=== PATIENT | female | born 1995 | race Caucasian/White ===

== ENCOUNTER 2019-07-12 14:57 | Emergency (ER) | payer SELFPAY ==
[~2019-07-12] VITALS: Ht 162.6 cm; Wt 65.8 kg
--- NOTE | 2019-07-12 15:25 | ED General ---
General Chief Complaint: Cough/Cold/Flu Symptoms Stated Complaint: COUGH,FEVER, SORE THROAT Source of Information: Patient Exam Limitations: No Limitations History of Present Illness Date Seen by Provider: Jul 12, 2019 Time Seen by Provider: 15:24 Initial Comments To ER with reports of subjective fever, cough, sore throat since yesterday. Timing/Duration: 1-2 Days Severity: Moderate Associated Systoms: Cough Allergies and Home Medications Allergies Coded Allergies: No Known Drug Allergies (Unverified , 07/12/19) Patient Home Medication List Home Medication List Reviewed: Yes Review of Systems Review of Systems Constitutional: see HPI, chills EENTM: see HPI, throat pain Respiratory: see HPI, cough Cardiovascular: no symptoms reported Genitourinary: no symptoms reported Musculoskeletal: no symptoms reported Skin: no symptoms reported Psychiatric/Neurological: No Symptoms Reported Hematologic/Lymphatic: No Symptoms Reported Past Oshrodm-Vhcycn-Ydzjtt Hx Patient Social History Recent Foreign Travel: No Contact w/Someone Who Travel: No Physical Exam Vital Signs Vital Signs - First Documented Capillary Refill : Height, Weight, BMI Height: '" Weight: lbs. oz. kg; BMI Method: General Appearance: No Apparent Distress, WD/WN Eyes: Bilateral Eye Normal Inspection, Bilateral Eye PERRL, Bilateral Eye EOMI HEENT: PERRL/EOMI, TMs Normal, Normal ENT Inspection Neck: Full Range of Motion, Normal Inspection Respiratory: Normal Breath Sounds, No Accessory Muscle Use, No Respiratory Distress Cardiovascular: Regular Rate, Rhythm, Normal Peripheral Pulses Gastrointestinal: Normal Bowel Sounds, Non Tender, Soft Extremity: Normal Capillary Refill, Normal Inspection Neurologic/Psychiatric: Alert, Oriented x3 Skin: Normal Color, Warm/Dry Progress/Results/Core Measures Suspected Sepsis SIRS Temperature: Pulse: Respiratory Rate: Blood Pressure / Mean: Results/Orders My Orders Orders - JEANNINE LAST APRN Chest Pa/Lat (2 View) (07/12/19 15:23) Vital Signs/I&O 07/12/19 07/12/19 15:11 15:11 Temp 35.8 Pulse 79 Resp 17 B/P (MAP) 118/74 (89) Pulse Ox 98 O2 Delivery Room Air Room Air Capillary Refill : Departure Impression Primary Impression: Bronchitis Disposition: 01 HOME, SELF-CARE Condition: Stable Departure-Patient Inst. Decision time for Depature: 15:31 Referrals: NO,LOCAL PHYSICIAN (PCP/Family) Primary Care Physician Patient Instructions: Acute Bronchitis, Adult (DC) Add. Discharge Instructions: 1. Return to ER for any concerns 2. Follow-up with your doctor next week 3. All discharge instructions reviewed with patient and/or family. Voiced understanding. Scripts Dextromethorphan Hb/Doxylamine (Robitussin Nighttime Cough Dm) 237 Ml Liquid 5 ML PO Q4H PRN for COUGH, #14 EA Prov: JEANNINE LAST APRN 07/12/19 Azithromycin (Azithromycin) 250 Mg Tablet 250 MG PO UD, #6 TAB TAKE 2 TABLETS ON DAY ONE THEN TAKE 1 TABLET DAILY FOR FOUR MORE DAYS Prov: JEANNINE LAST APRN 07/12/19 JEANNINE LAST APRN Jul 12, 2019 15:25 POS
[2019-07-12] MEDS ORDERED: [UNRECOGNIZED DRUG - CODE] PO (15:32)
[2019-07-12] MEDS ORDERED: AZIT250T12 PO (15:32)
[2019-07-12 15:45] VITALS: BP 118/74
--- NOTE | 2019-07-12 15:48 | Diagnostic Imaging Report ---
CHEST PA/LAT (2 VIEW) Indication: Cough Comparison: None available. Findings: No pulmonary mass or consolidation. No pleural effusion or pneumothorax. Normal heart size and mediastinal contours. Impression: No acute cardiopulmonary process. Dictated by: Dictated on workstation # [id number]
== END 2019-07-12 15:45 | disposition home or self-care (01) ==
LOC: ER 15:00
DX: J40 Bronchitis, not specified as acute or chronic (principal)
CPT/HCPCS: 71046

== ENCOUNTER 2020-03-01 17:27 | Emergency (ER) | payer MEDICAID, OTHER ==
[~2020-03-01] VITALS: Ht 162.5 cm; Wt 72.8 kg
[~2020-03-01 17:27] MED LIST: AZIT250T12 PO; [UNRECOGNIZED DRUG - CODE] PO
[2020-03-01 17:40] VITALS: BP 132/86
--- NOTE | 2020-03-01 17:42 | ED Abdominal Pain ---
General Chief Complaint: Female Reproductive Stated Complaint: SWELLING IN HANDS AND ANKLES,ABD PAIN Source of Information: Patient, RN/MD, RN Notes Reviewed Exam Limitations: No Limitations History of Present Illness Date Seen by Provider: Mar 01, 2020 Time Seen by Provider: 17:30 Initial Comments This patient is a 24-year-old female that is a at 28-30 weeks presents to the emerge department complaining of the swelling. Patient states she still working full-time as noticed that she's given cefepime ankle swelling throughout the day. Also describes [address] contractions from time to time. Patient should come to the emergency department to get checked out. Patient states she tries to get into her [employer] but can't be seen until tomorrow. Patient is blood pressure on arrival is 130/82. Does not appear to be acutely swollen. Denies any headache. Patient states that she still having issues with smoking and smokes daily but has cut down. We'll do medical evaluation treatment is needed Severity/Quality: Mild Associated Symptoms: Denies Symptoms, Fatigue Allergies and Home Medications Allergies Coded Allergies: No Known Drug Allergies (Unverified , 07/12/19) Home Medications Azithromycin 250 Mg Tablet, 250 MG PO UD TAKE 2 TABLETS ON DAY ONE THEN TAKE 1 TABLET DAILY FOR FOUR MORE DAYS Prescribed by: JEANNINE LAST on 07/12/19 1532 Dextromethorphan Hb/Doxylamine 237 Ml Liquid, 5 ML PO Q4H PRN for COUGH Prescribed by: JEANNINE LAST on 07/12/19 1532 Patient Home Medication List Home Medication List Reviewed: Yes Review of Systems Review of Systems Constitutional: No no symptoms reported; see HPI; No chills, No diaphoresis, No dizziness, No fever, No malaise, No weakness, No weight gain, No weight loss, No other EENTM: No No Symptoms Reported, No See HPI, No Blurred Vision, No Double Vision, No Eye Pain, No Eye Tearing, No Ear Drainage, No Ear Pain, No Mouth Pain, No Mouth Swelling, No Nose Congestion, No Nose Pain, No Throat Pain, No T hroat Swelling, No Other Respiratory: Denies No Symptoms Reported, Denies See HPI, Denies Cough, Denies Orthopnea, Denies Shortness of Air, Denies SOA With Exertion, Denies SOA at Rest, Denies Stridor, Denies Wheezing, Denies Other Cardiovascular: Denies No Symptoms Reported, Denies See HPI, Denies Chest Pain, Denies Edema, Denies Irregular Heart Rate, Denies Lightheadedness, Denies Palpitations, Denies Syncope, Denies Other Gastrointestinal: Denies No Symptoms Reported, Denies See HPI, Denies Abdomen Distended, Denies Abdominal Pain, Denies Blood Streaked Stools, Denies Constipated, Denies Diarrhea, Denies Difficulty Swallowing, Denies Nausea, Denies Poor Appetite, Denies Poor Fluid Intake, Denies Rectal Bleeding, Denies Vomiting, Denies Other Genitourinary: Denies No Symptoms Reported, Denies See HPI, Denies Burning, Denies Discharge, Denies Drainage, Denies Frequency, Denies Flank Pain, Denies Hematuria, Denies Incontinence, Denies Pain, Denies Urgency, Denies Other Musculoskeletal: No no symptoms reported, No see HPI, No back pain, No gout, No joint pain, No joint swelling, No muscle pain, No muscle stiffness, No muscle cramps, No muscle twitching, No muscle weakness, No neck pain, No other Skin: No no symptoms reported, No see HPI, No change in color, No change in hair/nails, No dryness, No hx of skin cancer, No lesions, No lumps, No pruritus, No rash, No other Psychiatric/Neurological: Denies No Symptoms Reported, Denies See HPI, Denies Anxiety, Denies Depressed, Denies Emotional Problems, Denies Headache, Denies Numbness, Denies Paresthesia, Denies Pre-Existing Deficit, Denies Seizure, Denies Tingling, Denies Tremors, Denies Weakness, Denies Other Endocrine: Denies No Symptoms Reported, Denies See HPI, Denies Excessive Sweating, Denies Flushing, Denies Intolerance to Cold, Denies Intolerance to Heat, Denies Increased Hunger, Denies Increased Thrist, Denies Increased Urine, Denies Unexplained Weight Gain, Denies Unexplaned Weight Loss, Denies Other All Other Systems Reviewed Negative Unless Noted: Yes Past Vtmyojw-Varlgm-Oqgjtb Hx Patient Social History Type Used: Cigarettes 2nd Hand Smoke Exposure: Yes Recent Foreign Travel: No Contact w/Someone Who Travel: No Recent Hopitalizations: No Seasonal Allergies Seasonal Allergies: No Past Medical History Surgeries: Yes Orthopedic Respiratory: No Cardiac: No Neurological: No Genitourinary: No Gastrointestinal: No Musculoskeletal: No Endocrine: No HEENT: No Cancer: No Psychosocial: No Integumentary: No Blood Disorders: No Physical Exam Vital Signs Vital Signs - First Documented 03/01/20 17:40 Temp 36.3 Pulse 108 Resp 16 B/P (MAP) 132/86 (101) Pulse Ox 99 O2 Delivery Room Air Capillary Refill : Height/Weight/BMI Height: '" Weight: lbs. oz. 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, no motor/sensory deficits, alert, normal mood/affect, oriented x 3 Skin: normal color, warm/dry Progress/Results/Core Measures Results/Orders Lab Results Laboratory Tests Test 03/01/20 17:45 Range/Units Urine Color YELLOW Urine Clarity SL CLOUDY Urine pH 6.0 5-9 Urine Specific [place] >1.030 1.016-1.022 Urine Protein TRACE H NEGATIVE Urine Glucose (UA) NEGATIVE NEGATIVE Urine Ketones NEGATIVE NEGATIVE Urine Nitrite NEGATIVE NEGATIVE Urine Bilirubin NEGATIVE NEGATIVE Urine Urobilinogen 1.0 < = 1.0 MG/DL Urine Leukocyte Esterase TRACE H NEGATIVE Urine RBC (Auto) NEGATIVE NEGATIVE Urine RBC NONE /HPF Urine WBC 0-2 /HPF Urine Squamous Epithelial Cells 10-25 H /HPF Urine Crystals PRESENT H /LPF Urine Calcium Oxalate Crystals LARGE H /LPF Urine Bacteria FEW H /HPF Urine Casts NONE /LPF Urine Mucus MODERATE H /LPF Urine Culture Indicated NO My Orders Orders - YOMI BUI MD Urinalysis (03/01/20 17:39) Drug Screen Stat (Urine) (03/01/20 17:56) Vital Signs/I&O 03/01/20 17:40 Temp 36.3 Pulse 108 Resp 16 B/P (MAP) 132/86 (101) Pulse Ox 99 O2 Delivery Room Air Progress Progress Note : Time: 17:57 Progress Note Negative evaluation in the emergency department. Urinalysis done just UTI. Trace protein. Patient will follow up with [employer] as instructed for continue ayan toring her protein. Patient be started on antibiotics for UTI. Take medications as instructed. Try to avoid smoking. Will try to lay his sleep on her left side. Try to keep her feet elevated when possible and avoid prolonged standing. Departure Impression Primary Impression: Urinary tract infection Additional Impression: Bilateral swelling of feet Disposition: HOME, SELF-CARE Condition: Stable Departure-Patient Inst. Decision time for Depature: 17:59 Referrals: LUIS SIDDIQUI DO (PCP/Family) Primary Care Physician Patient Instructions: Swelling, Urinary Tract Infection, Adult (DC) Add. Discharge Instructions: Take medications as instructed. Try to avoid smoking. Will try to lay his sleep on her left side. Try to keep her feet elevated when possible and avoid prolonged standing. All discharge instructions reviewed with patient and/or family. Voiced understanding. Scripts Cephalexin (Cephalexin) 500 Mg Tablet 500 MG PO BID for 5 Days, #10 TAB 0 Refills Prov: YOMI BUI MD 03/01/20 YOMI BUI MD Mar 01, 2020 17:42
[2020-03-01 17:54] LABS: BACTERIA,URINE FEW /HPF; BILIRUBIN,URINE NEGATIVE (NEGATIVE); CLARITY,URINE SL CLOUDY; COLOR,URINE YELLOW; GLUCOSE, URINE (UA) NEGATIVE (NEGATIVE); KETONES,URINE NEGATIVE (NEGATIVE); LEUKOCYTE ESTERASE ,URINE TRACE (NEGATIVE); NITRITE,URINE NEGATIVE (NEGATIVE); PROTEIN,URINE TRACE (NEGATIVE); WBC,URINE 0-2 /HPF
[2020-03-01 17:55] LABS: CALCIUM OXALATE CRYSTALS,UR LARGE /LPF
[2020-03-01] MEDS ORDERED: CEPH500T PO (18:00)
[2020-03-01 18:14] LABS: AMPHETAMINE SCREEN, URINE NEGATIVE (NEGATIVE); BARBITURATE SCREEN URINE NEGATIVE (NEGATIVE); BENZODIAZEPINES SCREEN URINE NEGATIVE (NEGATIVE); CANNABINOID SCREEN, URINE POSITIVE (NEGATIVE); COCAINE SCREEN URINE NEGATIVE (NEGATIVE); METHADONE STAT NEGATIVE (NEGATIVE); METHAMPHETAMINE SCREEN URINE S NEGATIVE (NEGATIVE); OPIATE SCREEN URINE NEGATIVE (NEGATIVE); OXYCODONE STAT NEGATIVE (NEGATIVE); PROPOXYPHENE STAT NEGATIVE (NEGATIVE); TRICYCLIC ANTIDEPRESSANTS SCRE NEGATIVE (NEGATIVE)
== END 2020-03-01 18:03 | disposition home or self-care (01) ==
LOC: EDUNIT# 17:27 → ER FS 17:29
DX: O23.43 Unspecified infection of urinary tract in pregnancy, third trimester (principal); O12.03 Gestational edema, third trimester; O99.333 Smoking (tobacco) complicating pregnancy, third trimester; F17.200 Nicotine dependence, unspecified, uncomplicated; Z3A.32 32 weeks gestation of pregnancy
CPT/HCPCS: 80306; 81000; 99282

== ENCOUNTER 2021-01-20 16:25 | Emergency (ER) | payer MEDICAID ==
[~2021-01-20] VITALS: Ht 162 cm; Wt 66.8 kg
[~2021-01-20 16:25] MED LIST changes: +CEPH500T PO
--- NOTE | 2021-01-20 16:30 | ED General ---
General Stated Complaint: NAUSEA,MIGRIANE,ABD PAIN History of Present Illness Date Seen by Provider: January 20, 2021 Time Seen by Provider: 16:28 Initial Comments 25-year-old female presents with migraine, nausea and abdominal pain. She reports the nausea and the migraine started in the last approximately day to day and a half. She reports she has been having some intermittent abdominal pain for 2 months. She was told she needs her gallbladder out. Her abdominal pain is more on the left side and lower. She reports that she was a month and a half late on her. And had a small menstrual cycle that lasted 2 to 3 days. She does not have a known . Patient denies any fevers chills cough. She denies any urinary symptoms. Allergies and Home Medications Allergies Coded Allergies: No Known Drug Allergies (Unverified , 07/12/19) Home Medications Azithromycin 250 Mg Tablet, 250 MG PO UD TAKE 2 TABLETS ON DAY ONE THEN TAKE 1 TABLET DAILY FOR FOUR MORE DAYS Prescribed by: JEANNINE LAST on 07/12/19 1532 Cephalexin 500 Mg Tablet, 500 MG PO BID Prescribed by: YOMI BUI on 03/01/20 1800 Dextromethorphan Hb/Doxylamine 237 Ml Liquid, 5 ML PO Q4H PRN for COUGH Prescribed by: JEANNINE LAST on 07/12/19 1532 Patient Home Medication List Home Medication List Reviewed: Yes Review of Systems Review of Systems Constitutional: No chills, No fever Respiratory: No cough, No short of breath Cardiovascular: No chest pain, No palpitations Gastrointestinal: abdominal pain, nausea Musculoskeletal: no symptoms reported Skin: no symptoms reported Psychiatric/Neurological: Headache; Denies Numbness Past Luueepj-Mjsmun-Bkuvdg Hx Past Med/Social Hx: Reviewed Nursing Past Med/Soc Hx Patient Social History Type Used: Cigarettes 2nd Hand Smoke Exposure: Yes Recent Hopitalizations: No Seasonal Allergies Seasonal Allergies: No Past Medical History Surgeries: Yes (BMT) Orthopedic Respiratory: No Cardiac: No Neurological: No Genitourinary: No Gastrointestinal: No Musculoskeletal: No Endocrine: No HEENT: No Cancer: No Psychosocial: No Integumentary: No Blood Disorders: No Physical Exam Vital Signs Vital Signs - First Documented 01/20/21 16:32 Temp 36.9 Pulse 79 Resp 18 B/P (MAP) 125/80 (95) Pulse Ox 100 O2 Delivery Room Air Capillary Refill : Height, Weight, BMI Height: '" Weight: lbs. oz. kg; 27.00 BMI Method: General Appearance: No Apparent Distress HEENT: PERRL/EOMI Respiratory: Lungs Clear, Normal Breath Sounds Cardiovascular: Regular Rate, Rhythm, No Edema Gastrointestinal: Soft, Tenderness (Minimal left and mid abdomen) Extremity: Normal Capillary Refill, Normal Inspection Neurologic/Psychiatric: Alert, Oriented x3 Progress/Results/Core Measures Suspected Sepsis SIRS Temperature: Pulse: Respiratory Rate: Laboratory Tests 01/20/21 16:40: White Blood Count 7.0 Blood Pressure / Mean: Laboratory Tests 01/20/21 16:40: Creatinine 0.67, Platelet Count 191, Total Bilirubin 0.2 Results/Orders Lab Results Laboratory Tests Test 01/20/21 16:32 01/20/21 16:40 Range/Units Urine Color YELLOW Urine Clarity CLOUDY Urine pH 8.0 5-9 Urine Specific [place] 1.020 1.016-1.022 Urine Protein NEGATIVE NEGATIVE Urine Glucose (UA) NEGATIVE NEGATIVE Urine Ketones NEGATIVE NEGATIVE Urine Nitrite NEGATIVE NEGATIVE Urine Bilirubin NEGATIVE NEGATIVE Urine Urobilinogen 0.2 < = 1.0 MG/DL Urine Leukocyte Esterase TRACE H NEGATIVE Urine RBC (Auto) NEGATIVE NEGATIVE Urine RBC NONE /HPF Urine WBC NONE /HPF Urine Squamous Epithelial Cells 5-10 /HPF Urine Crystals PRESENT H /LPF Urine Amorphous Sediment LARGE AMISHA PHOSPHATE H /LPF Urine Bacteria NEGATIVE /HPF Urine Casts NONE /LPF Urine Mucus NEGATIVE /LPF Urine Culture Indicated NO White Blood Count 7.0 4.3-11.0 10^3/uL Red Blood Count 4.99 4.35-5.85 10^6/uL Hemoglobin 13.0 11.5-16.0 G/DL Hematocrit 40 35-52 % Mean Corpuscular Volume 80 80-99 FL Mean Corpuscular Hemoglobin 26 25-34 PG Mean Corpuscular Hemoglobin Concent 33 32-36 G/DL Red Cell Distribution Width 13.6 10.0-14.5 % Platelet Count 191 130-400 10^3/uL Mean Platelet Volume 10.9 H 7.4-10.4 FL Immature Granulocyte % (Auto) 0 % Neutrophils (%) (Auto) 63 42-75 % Lymphocytes (%) (Auto) 29 12-44 % Monocytes (%) (Auto) 6 0-12 % Eosinophils (%) (Auto) 1 0-10 % Basophils (%) (Auto) 0 0-10 % Neutrophils # (Auto) 4.4 1.8-7.8 X 10^3 Lymphocytes # (Auto) 2.0 1.0-4.0 X 10^3 Monocytes # (Auto) 0.4 0.0-1.0 X 10^3 Eosinophils # (Auto) 0.1 0.0-0.3 10^3/uL Basophils # (Auto) 0.0 0.0-0.1 10^3/uL Immature Granulocyte # (Auto) 0.0 0.0-0.1 10^3/uL Sodium Level 141 135-145 MMOL/L Potassium Level 3.9 3.6-5.0 MMOL/L Chloride Level 106 98-107 MMOL/L Carbon Dioxide Level 27 21-32 MMOL/L Anion Gap 8 5-14 MMOL/L Blood Urea Nitrogen 11 7-18 MG/DL Creatinine 0.67 0.60-1.30 MG/DL Estimat Glomerular Filtration Rate > 60 BUN/Creatinine Ratio 16 Glucose Level 91 70-105 MG/DL Calcium Level 9.3 8.5-10.1 MG/DL Corrected Calcium 9.3 8.5-10.1 MG/DL Total Bilirubin 0.2 0.1-1.0 MG/DL Aspartate Amino Transf (AST/SGOT) 16 5-34 U/L Alanine Aminotransferase (ALT/SGPT) 15 0-55 U/L Alkaline Phosphatase 179 H 40-136 U/L Total Protein 6.9 6.4-8.2 GM/DL Albumin 4.0 3.2-4.5 GM/DL Lipase 39 8-78 U/L Serum Test, Qualitative NEGATIVE NEGATIVE My Orders Orders - MANZANARES,RENARD L DO Cbc With Automated Diff (01/20/21 16:39) Comprehensive Metabolic Panel (01/20/21 16:39) Hcg,Qualitative Serum (01/20/21 16:39) Lipase (01/20/21 16:39) Ua Culture If Indicated (01/20/21 16:39) Ondansetron Injection (Zofran Injectio (01/20/21 16:45) Lactated Ringers (Lr 1000 Ml Iv Solution (01/20/21 16:39) Ketorolac Injection (Toradol Injection) (01/20/21 17:04) Metoclopramide Injection (Reglan Injecti (01/20/21 17:04) Diphenhydramine Injection (Benadryl Inje (01/20/21 17:04) Medications Given in ED Current Medications Medications Dose Ordered Sig/Angela Route Start Time Stop Time Status Last Admin Dose Admin Ondansetron HCl 4 mg ONCE ONCE IVP 01/20/21 16:45 01/20/21 16:46 DC 01/20/21 16:45 4 MG Vital Signs/I&O 01/20/21 16:32 Temp 36.9 Pulse 79 Resp 18 B/P (MAP) 125/80 (95) Pulse Ox 100 O2 Delivery Room Air Capillary Refill : Progress Note : Time: 17:15 Progress Note Patient with negative labs and negative urine. Patient symptoms likely a result of her migraine. She was treated with Toradol Benadryl Reglan. I will discharge her with some Zofran. Patient she go home get some rest. She can use Tylenol ibuprofen if her migraine returns, drink plenty of fluids. Departure Impression Primary Impression: Migraine Qualified Codes: G43.909 - Migraine, unspecified, not intractable, without status migrainosus Disposition: 01 HOME, SELF-CARE Condition: Stable Departure-Patient Inst. Referrals: LUIS SIDDIQUI DO (PCP/Family) Primary Care Physician Patient Instructions: Migraines in Adults, How to Keep Track of Your Headaches Add. Discharge Instructions: Get plenty of rest, Tylenol ibuprofen as needed Scripts Ondansetron (Ondansetron Odt) 4 Mg Tab.rapdis 4 MG PO Q6H PRN for NAUSEA/VOMITING, #20 TAB 0 Refills Prov: RENARD MANZANARES DO 01/20/21 RENARD MANZANARES DO January 20, 2021 16:30
[2021-01-20 16:32] VITALS: BP 125/80
[2021-01-20] MEDS ORDERED: LACTATED RINGERS 1,000 ML IV STA (16:39)
[2021-01-20] MEDS ORDERED: ONDANSETRON 4 MG/2 ML (SDV) Z0FRAN IVP ONE (16:45)
[2021-01-20 16:48] LABS: BASOPHILS % (AUTO) 0 % (0-10); EOSINOPHILS # (AUTO) 0.1 10^3/uL (0.0-0.3); EOSINOPHILS % (AUTO) 1 % (0-10); HEMATOCRIT 40 % (35-52); LYMPHOCYTES % (AUTO) 29 % (12-44); MEAN CORPUSCULAR HEMOGLOBIN 26 PG (25-34); MEAN CORPUSCULAR HGB CONC 33 G/DL (32-36); MEAN CORPUSCULAR VOLUME 80 FL (80-99); MEAN PLATELET VOLUME 10.9 FL (7.4-10.4); MONOCYTES # (AUTO) 0.4 X 10^3 (0.0-1.0); MONOCYTES % (AUTO) 6 % (0-12); NEUTROPHILS # (AUTO) 4.4 X 10^3 (1.8-7.8); NEUTROPHILS % (AUTO) 63 % (42-75); PLATELET COUNT 191 10^3/uL (130-400)
[2021-01-20 16:53] LABS: COLOR,URINE YELLOW
[2021-01-20 16:54] LABS: AMORPHOUS SEDIMENT,UR LARGE AMOR PHOSPHATE /LPF; BACTERIA,URINE NEGATIVE /HPF; BILIRUBIN,URINE NEGATIVE (NEGATIVE); CLARITY,URINE CLOUDY; GLUCOSE, URINE (UA) NEGATIVE (NEGATIVE); KETONES,URINE NEGATIVE (NEGATIVE); LEUKOCYTE ESTERASE ,URINE TRACE (NEGATIVE); NITRITE,URINE NEGATIVE (NEGATIVE); PROTEIN,URINE NEGATIVE (NEGATIVE)
[2021-01-20] MEDS ORDERED: KETOROLAC 30 MG/ML VIAL IVP STA (17:04)
[2021-01-20] MEDS ORDERED: METOCLOPRAMIDE INJ 10 MG/2 ML (REGLAN) IVP STA (17:04)
[2021-01-20] MEDS ORDERED: diphenhydrAMINE 50 MG/ML INJ (BENADRYL) IV STA (17:04)
[2021-01-20 17:10] LABS: ALANINE AMINOTRANSFERASE 15 U/L (0-55); ALKALINE PHOSPHATASE 179 U/L (40-136); BILIRUBIN,TOTAL 0.2 MG/DL (0.1-1.0); BUN/CREATININE RATIO 16; CALCIUM 9.3 MG/DL (8.5-10.1); CARBON DIOXIDE 27 MMOL/L (21-32); CHLORIDE 106 MMOL/L (98-107); CREATININE SERUM 0.67 MG/DL (0.60-1.30); GFR ESTIMATED > 60; GLUCOSE 91 MG/DL (70-105); LIPASE 39 U/L (8-78); POTASSIUM 3.9 MMOL/L (3.6-5.0); SODIUM 141 MMOL/L (135-145); TOTAL PROTEIN 6.9 GM/DL (6.4-8.2)
[2021-01-20] MEDS ORDERED: ONDA4TAB11 PO (17:34)
== END 2021-01-20 17:35 | disposition home or self-care (01) ==
LOC: EDUNIT# 16:25 → ER FS 16:26
DX: G43.909 Migraine, unspecified, not intractable, without status migrainosus (principal); R10.9 Unspecified abdominal pain; Z77.22 Contact with and (suspected) exposure to environmental tobacco smoke (acute) (chronic)
CPT/HCPCS: 36415; 80053; 81000; 83690; 84703; 85025; 99282

== ENCOUNTER 2021-03-03 20:38 | Emergency (ER) | payer MEDICAID ==
[~2021-03-03] VITALS: Ht 162.5 cm; Wt 63.5 kg
[~2021-03-03 20:38] MED LIST changes: +ONDA4TAB11 PO
[2021-03-03 20:42] VITALS: BP 127/82
--- NOTE | 2021-03-03 20:42 | ED Headache ---
General Stated Complaint: MIGRIANE,NAUSEA History of Present Illness Date Seen by Provider: Mar 03, 2021 Time Seen by Provider: 20:42 Initial Comments 25-year-old female presents with migraine as nausea. Patient has a history of migraines and this is similar. The migraines mainly over the right side of her head and eye. Patient reports that it started this morning. She tried some Tylenol ibuprofen with minimal relief. Patient reports in the past she was on a daily medication for migraines but is no longer on it. She does report that she is following up with a primary care provider to try to establish care to have further management. She has not vomited but does have the nausea. He has some mild photophobia. Allergies and Home Medications Allergies Coded Allergies: No Known Drug Allergies (Unverified , 07/12/19) Home Medications Azithromycin 250 Mg Tablet, 250 MG PO UD TAKE 2 TABLETS ON DAY ONE THEN TAKE 1 TABLET DAILY FOR FOUR MORE DAYS Prescribed by: JEANNINE LAST on 07/12/19 1532 Cephalexin 500 Mg Tablet, 500 MG PO BID Prescribed by: YOMI BUI on 03/01/20 1800 Dextromethorphan Hb/Doxylamine 237 Ml Liquid, 5 ML PO Q4H PRN for COUGH Prescribed by: JEANNINE LAST on 07/12/19 1532 Ondansetron 4 Mg Tab.rapdis, 4 MG PO Q6H PRN for NAUSEA/VOMITING Prescribed by: RENARD MANZANARES on 01/20/21 1734 Patient Home Medication List Home Medication List Reviewed: Yes Review of Systems Review of Systems Constitutional: No chills, No fever Eyes: Photophobia Ears, Nose, Mouth, Throat: no symptoms reported Respiratory: No cough, No short of breath Cardiovascular: No chest pain, No palpitations Gastrointestinal: No abdominal pain; nausea; No vomiting Genitourinary: no symptoms reported Musculoskeletal: no symptoms reported Skin: no symptoms reported Psychiatric/Neurological: Headache Past Axatkue-Lszkic-Bkrnak Hx Seasonal Allergies Seasonal Allergies: No Past Medical History Surgeries: Yes (BMT) Orthopedic Respiratory: No Cardiac: No Neurological: No Genitourinary: No Gastrointestinal: No Musculoskeletal: No Endocrine: No HEENT: No Cancer: No Psychosocial: No Integumentary: No Blood Disorders: No Physical Exam Vital Signs Vital Signs - First Documented 03/03/21 20:42 Temp 37.0 Pulse 81 Resp 16 B/P (MAP) 127/82 (97) Pulse Ox 100 O2 Delivery Room Air Capillary Refill : Height, Weight, BMI Height: '" Weight: lbs. oz. kg; 25.00 BMI Method: General Appearance: mild distress HEENT: PERRL/EOMI Neck: full range of motion, supple Cardiovascular: normal peripheral pulses, regular rate, rhythm Respiratory: lungs clear, normal breath sounds Gastrointestinal: non tender, soft Extremities: non-tender Psychiatric: alert, oriented x 3 Crainal Nerves: normal hearing Coordination/Gait: normal finger to nose, normal gait Motor/Sensory: no motor deficit Skin: normal color, warm/dry Progress/Results/Core Measures Results/Orders My Orders Orders - RENARD MANZANARES DO Urine Bedside (03/03/21 20:48) Ketorolac Injection (Toradol Injection) (03/03/21 20:51) Metoclopramide Injection (Reglan Injecti (03/03/21 20:51) Diphenhydramine Injection (Benadryl Inje (03/03/21 20:51) Vital Signs/I&O 03/03/21 20:42 Temp 37.0 Pulse 81 Resp 16 B/P (MAP) 127/82 (97) Pulse Ox 100 O2 Delivery Room Air Departure Impression Primary Impression: Migraine Qualified Codes: G43.909 - Migraine, unspecified, not intractable, without status migrainosus Disposition: 01 HOME, SELF-CARE Condition: Stable Departure-Patient Inst. Referrals: SIOBHAN MARTIN MD (PCP/Family) Primary Care Physician Patient Instructions: Migraines (DC) Add. Discharge Instructions: Follow-up with your primary care provider for long-term migraine management. Drink plenty of fluid RENARD MANZANARES DO Mar 03, 2021 20:42
[2021-03-03] MEDS ORDERED: KETOROLAC 60 MG/2 ML VIAL IM STA (20:51)
[2021-03-03] MEDS ORDERED: METOCLOPRAMIDE INJ 10 MG/2 ML (REGLAN) IM/IV STA (20:51)
[2021-03-03] MEDS ORDERED: diphenhydrAMINE 50 MG/ML INJ (BENADRYL) IM STA (20:51)
== END 2021-03-03 21:12 | disposition home or self-care (01) ==
LOC: EDUNIT# 20:38 → ER FS 20:39
DX: G43.909 Migraine, unspecified, not intractable, without status migrainosus (principal)
CPT/HCPCS: 84703; 99284

== ENCOUNTER 2021-05-01 08:40 | Emergency (ER) | payer MEDICAID ==
[~2021-05-01] VITALS: Ht 165.1 cm; Wt 70.5 kg
[2021-05-01 08:54] VITALS: BP 147/78
[2021-05-01 09:07] LABS: BILIRUBIN,URINE NEGATIVE (NEGATIVE); CLARITY,URINE CLOUDY; COLOR,URINE YELLOW; GLUCOSE, URINE (UA) NEGATIVE (NEGATIVE); KETONES,URINE NEGATIVE (NEGATIVE); LEUKOCYTE ESTERASE ,URINE NEGATIVE (NEGATIVE); NITRITE,URINE NEGATIVE (NEGATIVE); PH,URINE 5.5 (5-9); PROTEIN,URINE NEGATIVE (NEGATIVE)
[2021-05-01 09:08] LABS: BACTERIA,URINE MODERATE /HPF
--- NOTE | 2021-05-01 09:08 | ED GI ---
General Chief Complaint: Abdominal/GI Problems Stated Complaint: CHEST/EPIGASTRIC PAIN Nursing Triage Note: Patient presents to the ED with c/o epigastric pain. She reports that she was driving when she had a sudden onset of pain in her upper abdomen that radiated up into her chest. She also reports that she is 6 weeks and had her gallbladder removed 2 weeks ago. Patient states that the pain almost felt like "an anxiety attack". Upon arrival patient reports that the pain has almost subsided. Source of Information: Patient Exam Limitations: No Limitations History of Present Illness Date Seen by Provider: May 01, 2021 Time Seen by Provider: 09:06 Initial Comments 25-year-old presents with epigastric pain, sudden onset this morning while driving to work and resolved completely after arriving to the ER. Patient 6- week and also had a cholecystectomy 2 weeks ago in [place]..... Scheduled for surgical follow-up tomorrow. She states has been doing well, eating and drinking normally, normal bowel movements, not having abdominal pain (although taking hydrocodone intermittently for pain.) Denies constipation or bloating. Denies fever chills or nausea. Allergies and Home Medications Allergies Coded Allergies: No Known Drug Allergies (Unverified , 07/12/19) Home Medications Azithromycin 250 Mg Tablet, 250 MG PO UD TAKE 2 TABLETS ON DAY ONE THEN TAKE 1 TABLET DAILY FOR FOUR MORE DAYS Prescribed by: JEANNINE LAST on 07/12/19 153 Cephalexin 500 Mg Tablet, 500 MG PO BID Prescribed by: YOMI BUI on 03/01/20 1800 Dextromethorphan Hb/Doxylamine 237 Ml Liquid, 5 ML PO Q4H PRN for COUGH Prescribed by: JEANNINE LAST on 07/12/19 153 Ondansetron 4 Mg Tab.rapdis, 4 MG PO Q6H PRN for NAUSEA/VOMITING Prescribed by: RENARD MANZANARES on 01/20/21 1734 Patient Home Medication List Home Medication List Reviewed: Yes Review of Systems Review of Systems Constitutional: No fever, No malaise, No weakness Respiratory: Denies Cough, Denies Shortness of Air Cardiovascular: Denies Chest Pain, Denies Edema Gastrointestinal: See HPI, Abdominal Pain; Denies Constipated, Denies Diarrhea, Denies Nausea, Denies Poor Appetite, Denies Vomiting Genitourinary: No Symptoms Reported Musculoskeletal: No back pain, No joint pain Skin: No change in color Past Iuolbuh-Kohdeb-Jqajqg Hx Patient Social History Tobacco Use?: Yes Tobacco type used: Cigarettes Smoking Status: Current Someday Smoker Use of E-Cig and/or Vaping dev: Yes E-Cig or Vaping type used: Nicotine Use of E-Cig and/or Vaping Chris: Current Everyday User Substance use?: No Alcohol Use?: No Pt feels they are or have been: No Seasonal Allergies Seasonal Allergies: No Past Medical History Surgeries: Yes (BMT) Orthopedic Respiratory: No Cardiac: No Neurological: No Expected Date of Delivery: Dec 22, 2021 Last Menstrual Period: Mar 17, 2021 Genitourinary: No Gastrointestinal: No Musculoskeletal: No Endocrine: No HEENT: No Cancer: No Psychosocial: No Integumentary: No Blood Disorders: No Physical Exam Vital Signs Vital Signs - First Documented 05/01/21 08:54 Temp 36.5 Pulse 81 Resp 16 B/P (MAP) 147/78 (101) Pulse Ox 99 O2 Delivery Room Air Capillary Refill : Less Than 3 Seconds Height/Weight/BMI Height: '" Weight: lbs. oz. kg; 25.00 BMI Method: General Appearance: WD/WN, no apparent distress Respiratory: chest non-tender, lungs clear Cardiovascular: regular rate, rhythm, no edema Gastrointestinal: normal bowel sounds, non tender, soft, no organomegaly, no pulsatile mass; No distended, No guarding, No rebound, No mass Back: normal inspection, no CVA tenderness Neurologic/Psychiatric: alert, normal mood/affect Skin: normal color, warm/dry Progress/Results/Core Measures Results/Orders Lab Results Laboratory Tests Test 05/01/21 08:45 Range/Units Urine Color YELLOW Urine Clarity CLOUDY Urine pH 5.5 5-9 Urine Specific [place] >=1.030 1.016-1.022 Urine Protein NEGATIVE NEGATIVE Urine Glucose (UA) NEGATIVE NEGATIVE Urine Ketones NEGATIVE NEGATIVE Urine Nitrite NEGATIVE NEGATIVE Urine Bilirubin NEGATIVE NEGATIVE Urine Urobilinogen 0.2 < = 1.0 MG/DL Urine Leukocyte Esterase NEGATIVE NEGATIVE Urine RBC (Auto) NEGATIVE NEGATIVE Urine RBC NONE /HPF Urine WBC 2-5 /HPF Urine Squamous Epithelial Cells 10-25 H /HPF Urine Crystals NONE /LPF Urine Bacteria MODERATE H /HPF Urine Casts NONE /LPF Urine Mucus SMALL H /LPF Urine Culture Indicated NO Urine Test POSITIVE NEGATIVE My Orders Orders - ROVENSTINE,DAMARI L DO Ua Culture If Indicated (05/01/21 08:53) Hcg,Qualitative Urine (05/01/21 08:53) Vital Signs/I&O 05/01/21 08:54 Temp 36.5 Pulse 81 Resp 16 B/P (MAP) 147/78 (101) Pulse Ox 99 O2 Delivery Room Air Blood Pressure Mean: 101 Progress Progress Note : Progress Note Patient was asymptomatic and with normal abdominal exam, normal vital signs and no complaints. Reassurance given, advised to take Mylanta as needed for intermittent stomach pains should they recur. Advised to keep her in postop follow-up with her general surgeon tomorrow and to see her PCP in 1 week if symptoms continue. Departure Impression Primary Impression: Epigastric pain Disposition: HOME, SELF-CARE Condition: Stable Departure-Patient Inst. Decision time for Depature: 09:07 Referrals: SIOBHAN MARTIN MD (PCP/Family) Primary Care Physician Patient Instructions: Acid Reflux (Gastroesophageal Reflux Disease) During Add. Discharge Instructions: Follow up with your OB for routine scheduled care. See your Surgeon in [place] tomorrow as scheduled. See your PCP in 1 week if you continue to have intermittent stomach pain. Take some Mylanta as needed for intermittent stomach pain All discharge instructions reviewed with patient and/or family. Voiced understanding. Work/School Note: Work Release Form Date Seen in the Emergency Department: May 01, 2021 Return to Work: May 01, 2021 Restrictions: No Restrictions DAMARI LIMON DO May 01, 2021 09:08
== END 2021-05-01 09:11 | disposition home or self-care (01) ==
LOC: EDUNIT# 08:40 → ER FS 08:42
DX: O26.891 Other specified pregnancy related conditions, first trimester (principal); R10.13 Epigastric pain; O99.331 Smoking (tobacco) complicating pregnancy, first trimester; F17.210 Nicotine dependence, cigarettes, uncomplicated; F17.290 Nicotine dependence, other tobacco product, uncomplicated; Z90.49 Acquired absence of other specified parts of digestive tract; Z3A.01 Less than 8 weeks gestation of pregnancy
CPT/HCPCS: 81000; 84703; 99282

== ENCOUNTER 2022-12-31 17:05 | Emergency (ER) | payer MEDICAID ==
[~2022-12-31] VITALS: Ht 165 cm; Wt 75.0 kg
[2022-12-31] MEDS ORDERED: NS IV 1000 ML 1,000 ML IV STA (17:16)
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
[2022-12-31 17:33] VITALS: BP 143/100
[2022-12-31 17:37] LABS: BASOPHILS % (AUTO) 1 % (0-10); EOSINOPHILS % (AUTO) 1 % (0-10); HEMATOCRIT 38 % (35-52); HEMOGLOBIN 12.7 g/dL (11.5-16.0); LYMPHOCYTES # (AUTO) 1.3 10^3/uL (1.0-4.0); LYMPHOCYTES % (AUTO) 24 % (12-44); MEAN CORPUSCULAR HEMOGLOBIN 27 pg (25-34); MEAN CORPUSCULAR HGB CONC 33 g/dL (32-36); MEAN CORPUSCULAR VOLUME 82 fL (80-99); MONOCYTES # (AUTO) 0.5 10^3/uL (0.0-1.0); MONOCYTES % (AUTO) 8 % (0-12); NEUTROPHILS # (AUTO) 3.8 10^3/uL (1.8-7.8); NEUTROPHILS % (AUTO) 67 % (42-75); PLATELET COUNT 188 10^3/uL (130-400); WHITE BLOOD COUNT 5.7 10^3/uL (4.3-11.0)
--- NOTE | 2022-12-31 17:42 | Diagnostic Imaging Report ---
INDICATION: Cough, short of breath, burning chest pain. COMPARISON: 07/12/2019. FINDINGS: Frontal and lateral views of the chest demonstrate normal heart size and pulmonary vascularity. The lungs are clear. There are no signs of infiltrate, pleural effusions or pneumothoraces. The visualized osseous structures show no acute abnormalities. IMPRESSION: 1. No acute process. No signs of infiltrates, effusions or pneumothoraces. Dictated by: Dictated on workstation # [id number]
[2022-12-31] MEDS ORDERED: RT-ALBUTEROL HFA 8.5 GM INHALER IH STA (18:12)
[2022-12-31 18:15] LABS: ALBUMIN 4.1 GM/DL (3.2-4.5); BILIRUBIN,TOTAL 0.5 MG/DL (0.1-1.0); CALCIUM 9.5 MG/DL (8.5-10.1); CREATININE SERUM 0.74 MG/DL (0.60-1.30); POTASSIUM 3.5 MMOL/L (3.6-5.0); TOTAL PROTEIN 7.1 GM/DL (6.4-8.2)
[2022-12-31] MEDS ORDERED: PRD20T PO (18:29)
== END 2022-12-31 18:35 | disposition home or self-care (01) ==
LOC: EDUNIT# 17:05 → ER FS 17:07
DX: J06.9 Acute upper respiratory infection, unspecified (principal); L55.0 Sunburn of first degree; R00.0 Tachycardia, unspecified; F17.290 Nicotine dependence, other tobacco product, uncomplicated; Z20.822 Contact with and (suspected) exposure to COVID-19
CPT/HCPCS: 36415; 71046; 80053; 85025; 85379; 86141; 87430; 87636; 93005